=== PATIENT | female | born 1965 | race Caucasian/White ===

== ENCOUNTER 2017-02-20 14:06 | Emergency (ER) | payer OTHER ==
[~2017-02-20] VITALS: Ht 154.9 cm; Wt 56.7 kg
--- NOTE | 2017-02-20 16:38 | ED UPPER/LOWER EXTREMITY COMPL ---
History of Present Illness General Chief Complaint: Lower Extremity Problems Stated Complaint: R LEG PAIN, DIZZINESS Source: patient Exam Limitations: no limitations Vital Signs & Intake/Output Vital Signs & Intake/Output Vital Signs Date Time Temp Pulse Resp B/P Pulse O2 O2 Flow FiO2 Ox Delivery Rate 02/20 1934 98.7 65 18 150/78 98 Room Air 02/20 1739 53 20 137/80 100 02/20 1412 98.6 71 20 149/97 96 Room Air Allergies Coded Allergies: meperidine (From Demerol) (UNKNOWN 07/15/16) Triage Note: PT C/O RIGHT LEG PAIN, BODY WEAKNESS, BLURRED VISION, TIRED AND DIZZY. PT HAS HX OF MS AND STATES SHE IS NOW UNABLE TO WALK EVEN WITH HER CANE Triage Nurses Notes Reviewed? yes HPI: Patient presents for evaluation of an MS flare up. Patient states that she typically has trouble ambulating due to multiple sclerosis but the trouble has worsened today. She spoke to someone at Yoan Kaplan MD's office and was told to come to the emergency department for steroid injection. She denies any recent fever or cold symptoms. She states there seems to be no identifiable triggers for this current flareup. In addition to trouble ambulating she is also experiencing blurred vision and some dizziness. Symptoms are described as severe and compromised her ability to maintain activities of daily living. They fluctuate in intensity. Nothing seems to improve symptoms at this time. Patient has been compliant with her medications and there have been no recent medication dosage adjustments. Past History Travel History Traveled to [place] past 21 day No Medical History Any Pertinent Medical History? see below for history Neurological: MULTIPLE SCLEROSIS Surgical History Surgical History: non-contributory Psychosocial History What is your primary language Micronesian Tobacco Use: Quit >30 days ago ETOH Use: denies use Illicit Drug Use: denies illicit drug use Family History Hx Contributory? No Review of Systems Review of Systems Constitutional: Reports: no symptoms. EENTM: Reports: no symptoms. Respiratory: Reports: no symptoms. Cardiovascular: Reports: no symptoms. Gastrointestinal/Abdominal: Reports: no symptoms. Genitourinary: Reports: no symptoms. Musculoskeletal: Reports: see HPI. Skin: Reports: no symptoms. Neurological/Psychological: Reports: no symptoms. Hematologic/Endocrine: Reports: no symptoms. Immunological: Reports: no symptoms. All Other Systems: Reviewed and Negative Physical Exam Physical Exam General Appearance: SEE BELOW Comments: Gen.: Well-nourished, well-developed, no acute respiratory distress. Head: Normocephalic, atraumatic. Eyes: Normal inspection bilaterally, mild rotational nystagmus with extreme gaze to the right in the right eye Ears: Normal inspection bilaterally Nose: Normal inspection, nasal cannula in place Throat/mouth : Moist mucosa Neck: Supple, full range of motion, no goiter Heart: Regular rate and rhythm Lungs: Quiet respirations Back: Normal range of motion Extremities: Slight weakness of the right hand grasp, mild weakness of right foot dorsiflexion. Deep tendon reflexes are symmetrical and normal bilaterally. Sensation intact to light touch. Neurologic: Cranial nerves grossly intact, speech is clear Skin: warm and dry Psychiatric: Calm, cooperative, no apparent delusions or hallucinations Progress Differential Diagnosis: ms FLARE Plan of Care: Orders Procedure Date/time Status Regular Diet 02/20 D Active Comments: 02/20/2017 8:45:31 PM patient's slightly Medrol infusion has proceeded uneventfully. Departure Departure Disposition: HOME OR SELF CARE Condition: Stable Clinical Impression Primary Impression: Multiple sclerosis exacerbation Referrals: KIMBERLY ALANIZ,YOAN Salgado (PCP/Family) Additional Instructions: Continue the Solu-Medrol infusions over the next 3 days (return to the emergency department if necessary). Follow-up with your multiple sclerosis doctor (or whoever is covering) on Friday for reevaluation. Return immediately if any concerns or sudden worsening. Thank you for choosing the [facility] for your care. It was a pleasure to serve you today. Loy Ellison M.D. [facility] Departure Forms: Customer Survey General Discharge Information
[2017-02-20 19:34] VITALS: BP 150/78
== END 2017-02-20 20:51 ==
LOC: ERH 14:06
DX: G35 Multiple sclerosis (principal)
CPT/HCPCS: 96365; J1040; J7060